=== PATIENT | male | born 1980 | race Caucasian/White ===

== ENCOUNTER 2017-01-22 12:32 | Emergency (ER) | payer OTHER ==
[~2017-01-22] VITALS: Ht 180.3 cm; Wt 81.7 kg
--- NOTE | ~2017-01-22 | EKG ---
[address] [place] [address] ELECTROCARDIOGRAM REPORT Name: JAMES PEREA [facility]: [facility] [id number] Admission: 01/22/17 Attend Phys: Discharge: 01/22/17 Date of : 78 Report #: [id number] THIS REPORT FOR: //name// [facility] ED Test Date: 2017-01-22 Test Time: 12:41:49 Pat Name: JAMES PEREA Department: Room: Gender: Retail Shift Manager: CYNTHIA : 1980 Requested By: Aubrie Nina Order Number: [id number] MD: Jose Daniel Soares Measurements Intervals [place] Rate: 112 P: 29 MS: 114 QRS: 62 QRSD: 65 T: 0 QT: 287 QTc: 392 Interpretive Statements Sinus tachycardia Borderline T wave abnormalities No previous ECG available for comparison Electronically Signed On 01-23-2017 20:03:55 CDT by Jose Daniel Soares [email or web address] <ELECTRONICALLY SIGNED> By: Jose Daniel Soares MD 01/23/172002 1241 1241 Jose Daniel Soares MD /BIMAL
[2017-01-22] MEDS ORDERED: AMOXICILLIN 50500 MG PO (12:48)
[2017-01-22] MEDS ORDERED: DOXYCYCLINE 10100 MG PO (12:49)
[2017-01-22] MEDS ORDERED: PROZAC20 MG PO (12:49)
[2017-01-22] MEDS ORDERED: NEURONTIN 400400 M1 PO (12:49)
[2017-01-22] MEDS ORDERED: CLEOCIN HCL150 MG PO (12:49)
[2017-01-22] MEDS ORDERED: MIDODRINE HCL 55 M1 PO (12:50)
[2017-01-22] MEDS ORDERED: DEPAKOTE ER500 MG PO (12:50)
[2017-01-22] MEDS ORDERED: SEROQUEL200 MG PO (12:51)
[2017-01-22] MEDS ORDERED: CARISOPRODOL 3350 MG PO (12:51)
[2017-01-22] MEDS ORDERED: BUSPIRONE HCL10 MG PO (12:51)
[2017-01-22] MEDS ORDERED: XANAX1 MG PO (12:51)
[2017-01-22 13:53] LABS: HEMATOCRIT 45.9 % (42.0-52.0); HEMOGLOBIN 15.8 gm/dL (14.0-18.0); MANUAL DIFF YES; MCH 31.2 pg (26.0-34.0); MCHC 34.4 g/dL (28.0-37.0); MCV 90.6 fL (80.0-100.0); PLATELET COUNT 214 thou/uL (150-400); RBC 5.07 mil/uL (4.50-6.00); RDW 14.7 % (10.5-14.5); WBC 6.4 thou/uL (4.0-11.0)
[2017-01-22 14:06] LABS: ANION GAP 9 mmol/L (7-16); BUN 9 mg/dL (7-18); CALCIUM 8.7 mg/dL (8.5-10.1); CHLORIDE 99 mmol/L (98-107); CO2 28 mmol/L (21-32); GLUCOSE 104 mg/dL (70-99); POTASSIUM 3.5 mmol/L (3.5-5.1); SODIUM 136 mmol/L (136-145)
[2017-01-22 14:12] LABS: ALBUMIN 3.8 g/dL (3.4-5.0); ALKALINE PHOSPHATASE 37 U/L (46-116); SGOT 21 U/L (15-37); SGPT 39 U/L (30-65); TOTAL BILIRUBIN 0.3 mg/dL (<0.1-1.0); TOTAL PROTEIN 7.1 g/dL (6.4-8.2); TROPONIN-I < 0.04 ng/mL (<0.04-0.07)
[2017-01-22 14:23] LABS: ABSOLUTE NEUTROPHILS 4.8 thou/uL (1.4-8.2); TOTAL CELL COUNT 100
[2017-01-22] MEDS ORDERED: TESSALON PERLE100 MG PO (15:19)
[2017-01-22] MEDS ORDERED: NORCO 5-325 TA1 EACH PO (15:22)
[2017-01-22 16:52] VITALS: BP 140/92
== END 2017-01-22 16:53 | disposition home or self-care (01) ==
LOC: ER 12:32
PROVIDERS: Nurse Practitioner Family
DX: J09.X2 Influenza due to identified novel influenza A virus with other respiratory manifestations (principal); G43.909 Migraine, unspecified, not intractable, without status migrainosus; F17.210 Nicotine dependence, cigarettes, uncomplicated; Z88.8 Allergy status to other drugs, medicaments and biological substances